=== PATIENT | male | born 1960 | race Two or more races ===

== ENCOUNTER 2024-08-30 16:32 | Emergency (ER) | payer SELFPAY ==
[2024-08-30] MEDS: Ketorolac 60 MG/2 ML SDV IM ONE (17:11)
== END 2024-08-30 17:42 | disposition home or self-care (01) ==
LOC: MW.ED 16:32
DX: M54.50 Low back pain, unspecified (principal); Z79.899 Other long term (current) drug therapy; Z79.84 Long term (current) use of oral hypoglycemic drugs
CPT/HCPCS: 96372; 99283; J1885